=== PATIENT | female | born 1965 | race American Indian/Alaskan Native ===

== ENCOUNTER 2017-07-18 16:58 | Emergency (ER) | payer OTHER ==
[~2017-07-18] VITALS: Ht 160 cm; Wt 61.2 kg
[~2017-07-18 16:58] MED LIST: BENADRYL25 MG PO; EPIPEN 2-P0.3 MG/0.3 IM; IBUPROFEN800 MG PO; NORCO 5-325 TA1 EACH PO; PENICILLIN V P500 MG PO; PEPCID20 MG PO; PREDNISONE20 MG PO
== END 2017-07-18 20:15 | disposition home or self-care (01) ==
LOC: ED 16:58
DX: S13.9XXA Sprain of joints and ligaments of unspecified parts of neck, initial encounter (principal); S00.83XA Contusion of other part of head, initial encounter; F41.9 Anxiety disorder, unspecified; F17.200 Nicotine dependence, unspecified, uncomplicated; Z86.73 Personal history of transient ischemic attack (TIA), and cerebral infarction without residual deficits; Z88.5 Allergy status to narcotic agent; Z79.52 Long term (current) use of systemic steroids; Z79.899 Other long term (current) drug therapy; W22.8XXA Striking against or struck by other objects, initial encounter
CPT/HCPCS: 70486; 72125; 99284

== ENCOUNTER 2018-01-01 11:40 | Emergency (ER) | payer OTHER ==
[~2018-01-01] VITALS: Ht 160 cm; Wt 61.2 kg
--- OUTSIDE RECORDS SUMMARY | ~2018-01-01 | XMS | Clinical Summary ---
Demographics + + + | Address | [address] | | | [place] [address] | + + + | Home Phone | | + + + | Preferred Language | Unknown | + + + | Marital Status | Single | + + + | Sabianism Affiliation | Unknown | + + + | Race | Unknown | + + + | Ethnic Group | Unknown | + + + Author + + + | Author | [facility] | | | and [place] | + + + | Organization | [facility] | | | and [place] | + + + | Address | Unknown | + + + | Phone | Unavailable | + + + Support + + +---------+ + | Name | Relationship | Address | Phone | + + +---------+ + | Lucina Tinsley | ECON | Unknown | | + + +---------+ + Care Team Providers + +------+ + | Care Rug Cutter Helper Name | Role | Phone | + +------+ + | No, Physician | PP | Unavailable | + +------+ + Allergies No Known Allergies Current Medications No known medications Active Problems Not on file Encounters +--------+ + + + + | Date | Type | Specialty | Care Team | Description | +--------+ + + + + | 11/25/ | Emergency | | Martinez Chen, | Localized swelling | | 2018 | | | MD | on left hand | | | | | | (Primary Dx) | +--------+ + + + + from Last 3 Months Social History + +-------+ +--------+------+ | Tobacco [...] on file | | + + + Last Filed Vital Signs + + + + | Vital Sign | Reading | Time Taken | + + + + | Blood Pressure | 168/96 | 11/25/2017 0503 PDT | + + + + | Pulse | 82 | 11/25/2017502 PDT | + + + + | Temperature | 36.3 C (97.3 F) | 11/25/2017502 PDT | + + + + | Respiratory Rate | 18 | 11/25/2017502 PDT | + + + + | Oxygen Saturation | 100% | 11/25/2017502 PDT | + + + + | Inhaled Oxygen | - | - | | Concentration | | | + + + + | Weight | 68 kg (150 lb) | 11/25/2017502 PDT | + + + + | Height | 160 cm (5' 3") | 11/25/2017502 PDT | + + + + | Body Mass Index | 26.57 | 11/25/2017502 PDT | + + + + Plan of Treatment + + + + + | Health Maintenance | Due Date | Last Done | Comments | + + + + + | Vaccine: | | | | | Dtap/Tdap/Td (1 - | 6 | | | | Tdap) | | | | + + + + + | CERVICAL CANCER | | | | | SCREENING (PAP EVERY | 8 | | | | 3 YEARS 21-64 ) | | | | + + + + + | BREAST CANCER | | | | | SCREENING (MAMM Q2 | 7 | | | | YEARS 50-74) | | | | + + + + + | COLON CANCER | | | | | SCREENING | 7 | | | | (COLONOSCOPY EVERY | | | | | 10 YEARS 50-75) | | | | + + + + + | Vaccine: Influenza | | | | | (Season Ended) | 8 | | | + + + + + Results XR Finger Left 2 + Vw (11/25/2017 0526) + + | Narrative | + + | XR FINGER LEFT 2 + VW 11/25/2017 5:26 AM HISTORY: HAND PAIN. COMPARISON: None. | | FINDINGS: Mild first IP and first CMC joint degenerative change. Well-corticated | | ossific fragment along the ulnar styloid process is related to remote degenerative | | change or trauma. No acute fracture or malalignment. 3 mm thin radiodense foreign body | | projects over the radial and dorsal aspect of the head of the first proximal phalanx. | | IMPRESSION - No acute osseous findings. 3 mm thin radiodense foreign body | | projects over the radial and dorsal aspect of the head of the first proximal phalanx. | | Dictated and Signed by: Lee Guadalupe MD Electronically signed: 11/25/2017 12:26 | | PM | + + + + | Procedure Note | + + | Daren, Rad Results In - 11/25/2017 1229 PDT XR FINGER LEFT 2 + VW 11/25/2017 5:26 AM | | | | HISTORY: HAND PAIN. | | | | COMPARISON: None. | | | | FINDINGS: | | Mild first IP and first CMC joint degenerative change. Well-corticated ossific | | fragment along the ulnar styloid process is related to remote degenerative | | change or trauma. No acute fracture or malalignment. 3 mm thin radiodense | | foreign body projects over the radial and dorsal aspect of the head of the first | | proximal phalanx. | | | | IMPRESSION - | | No acute osseous findings. | | | | 3 mm thin radiodense foreign body projects over the radial and dorsal aspect of | | the head of the first proximal phalanx. | | | | Dictated and Signed by: Lee Guadalupe MD | | Electronically signed: 11/25/2017 12:26 PM | + + from Last 3 Months Insurance + +--------+ +--------+ +---------+ | Payer | Benefi | Subscriber | Type | Phone | Address | | | t Plan | ID | | | | | | / | | | | | | | Group | | | | | + +--------+ +--------+ +---------+ | [facility] | IHS | xxxxxxxxx | Indemn | | | | SERVICE | YELLOW | | ity | | | | | [place]WK | | | | | + +--------+ +--------+ +---------+ | [employer] | MODA | xxxxxxxx | Medica | [phone] | | MEDICAID HMO | HEALTH | | id | [id number] | | | | MDCD | | | | | | | HMO [place] | | | | | + +--------+ +--------+ +---------+ + +--------+ +--------+ + + | Guarantor Name | Accoun | Relation to | Date | Phone | Billing Address | | | t Type | Patient | of | | | | | | | | | | + +--------+ +--------+ + + | DIONNE TINSLEY | Person | Self [birth year] Home: | [address] | | | al/Fam | | 1964 | [phone] | [place] | | | kaitlin | | | [phone] | + +--------+ +--------+ + +
--- OUTSIDE RECORDS SUMMARY | ~2018-01-01 | XMS | Encounter Summary ---
Demographics + + + | Address | [address] | | | [place] [address] | + + + | Home Phone | | + + + | Preferred Language | Unknown | + + + | Marital Status | Single | + + + | Baptism Affiliation | Unknown | + + + | Race | Unknown | + + + | Ethnic Group | Unknown | + + + Author + + + | Author | [facility] | | | and [place] | + + + | Organization | [facility] | | | and [place] [...] Team Providers + +------+ + | Care Vascular Radiologist Name | Role | Phone | + [...] + | 11/25/ | Emergency | [facility] | Brown, Martinez Yuan, | Localized swelling | | 2018 | | [facility] | MD [address] | on left hand | | | | CENTER [address] | [facility] [place] | (Primary Dx) | | | | [place], [place] | [place] [address] | | | | | [address] | [phone] | | | | | [phone] | | | +--------+ + + + [...] on file | | + + + as of this encounter Last Filed Vital Signs + + + + | Vital Sign | Reading | Time Taken | + + + + | Blood Pressure | 168/96 | 11/25/2017502 PDT | + + + [...] 11/25/2017502 PDT | + + + + in this encounter Discharge Instructions Martinez Chen MD - 11/25/2017Parveen klein for 1-2 weeks Scheduled ibuprofen for 5 days Follow-up with primary care Return if worsein this encounter Medications at Time of Discharge + + +--------+---------+ + + | Medication | Sig. | Disp. | Refills | Start | End Date | | | | | | Date | | + + +--------+---------+ + + | ibuprofen | Take 1 tablet by | 20 | 0 | 11/26/19 | | | (ADVIL,MOTRIN) 600 | mouth every 6 hours | tablet | | 18 | 8 | | MG tablet | for 5 days. | | | | | + + +--------+---------+ + + as of this encounter Plan of Treatment Not on fileas of this encounter Results XR Finger Left 2 [...] signed: 11/25/2017 12:26 PM | + + in this encounter Visit Diagnoses + + | Diagnosis | + + | Localized swelling on left hand - Primary | + + Administered Medications + +--------+ +--------+------+------+ | Medication Order | MAR | Action | Dose | Rate | Site | | | Action | Date | | | | + +--------+ +--------+------+------+ | ibuprofen (ADVIL,MOTRIN) tablet | Given | | 600 mg | | | | 600 mg 600 mg, Oral, ONCE, Wed | | 8 5:45 | | | | | 11/25/17 at 0545, For 1 dose, Give | | PDT | | | | | with food. | | | | | | + +--------+ +--------+------+------+ +---+---+ | | | +---+---+ in this encounter
--- OUTSIDE RECORDS SUMMARY | ~2018-01-01 | XMS | Clinical Summary ---
Demographics + + + | Address | [address] | | | [place] [address] | + + + | Home Phone | | + + + | Preferred Language | Unknown | + + + | Marital Status | Single | + + + | Pentecostalism Affiliation | Unknown | + + + | Race | Unknown | + + + | Ethnic Group | Unknown | + + + Author + + + | Author | [facility] | | | and [place] | + + + | Organization | [facility] | | | and [...] Team Providers + +------+ + | Care Dentist Private Practice Name | Role | Phone | + [...] | | + +--------+ +--------+ +---------+ | [facility] | IHS | xxxxxxxxx | Indemn | | | | SERVICE | YELLOW | | ity | | | | | HAWK | | | | | + +--------+ +--------+ +---------+ | [employer] | MODA | xxxxxxxx | Medica | [phone] | | | MEDICAID HMO | HEALTH [...] | Self [birth year] | Home: | [address] | | | al/Fam | | 1964 | [phone] | [place] | | | kaitlin | | | [phone] | [phone] | + +--------+ +--------+ + +
--- OUTSIDE RECORDS SUMMARY | ~2018-01-01 | XMS | Encounter Summary ---
Demographics + + + | Address | [address] | | | [place] [address] | + + + | Home Phone | | + + + | Preferred Language | Unknown | + + + | Marital Status | Single | + + + | Roman Catholic Affiliation | Unknown | + + + | Race | Unknown | + + + | Ethnic Group | Unknown | + + + Author + + + | Author | [facility] | | | and [place] | + + + | Organization | [facility] | | | and [...] Team Providers + +------+ + | Care Boiler Repairman Name | Role | Phone | + [...] | | | | CENTER [address] | [facility] [place] | (Primary Dx) | | | | [place], [place] | [place] [address] | | | | | [address] | [phone] | | | | | [phone] | | | +--------+ + + + [...]
--- NOTE | 2018-01-01 14:16 | NUR ---
I WAS REQUESTED BY ED STAFF TO CARE FOR FAMILY OF PT. A NUMBER OF HER FAMILY MEMBERS WERE PRESENT, I HAD THEM MOVE INTO QUIET AND GAVE THEM THE LATEST INFO RE. PT. SHE HAS A BRAIN BLEED, AND IS ENTEBATED FOR HER PROTECTION. DR CLIFFORD INFORMED THEM OF HER CONDITION AND STATED THAT WE WILL BE TRANSPORTING HER SOON. KEPT FAMILY INFORMED THAT PT WILL BE GOING TO [facility] IN [place]. SOME FAMILY CHOSE TO WAIT FOR LIFEFLIGHT, TOOK SISTER AND CHILDREN IN TO SEE PT. COMFORTED THEM AND GAVE INSTRUCTIONS TO [facility]. I EXTENDED A BLESSING-WILL FOLLOW NEEDED
--- NOTE | 2018-01-01 19:26 | EKG ---
[facility] [address] [place] [address] Signed Poor data quality, interpretation may be adversely affected Normal sinus rhythm Prolonged QT Abnormal ECG No previous ECGs available Confirmed by GINA ORELLANA MD ([id number]) on 01/01/2018 7:26:31 PM Electronically Signed By: GINA ORELLANA MD 01/01/18 1926 PATIENT NAME: JILL FAIR Electrocardiogram DATE OF : 69 PHYSICIAN: GINA ORELLANA MD REPORT #: [id number] REPORT IS CONFIDENTIAL AND NOT TO BE RELEASED WITHOUT AUTHORIZATION
== END 2018-01-01 13:51 | disposition short-term general hospital (02) ==
LOC: ED 11:40
PROC: 0T9B70Z Drainage of Bladder with Drainage Device, Via Natural or Artificial Opening (ICD-10-PCS; principal; 2018-01-01)
DX: I60.9 Nontraumatic subarachnoid hemorrhage, unspecified (principal); I62.01 Nontraumatic acute subdural hemorrhage; F17.200 Nicotine dependence, unspecified, uncomplicated; Z88.5 Allergy status to narcotic agent; Z86.73 Personal history of transient ischemic attack (TIA), and cerebral infarction without residual deficits
CPT/HCPCS: 31500; 31720; 36600; 51702; 70450; 71045; 80053; 81001; 82803; 83880; 85025; 85610; 93005; 93010; 94002; 96365; 96375; 99291; G0480; J1100; J1953; J2405; J2704; J7030; J7050

== ENCOUNTER 2018-08-27 23:19 | Emergency (ER) | payer OTHER ==
[~2018-08-27] VITALS: Ht 160 cm; Wt 68.0 kg
[~2018-08-27 23:19] MED LIST changes: +ZITHROMAX250 MG PO
--- OUTSIDE RECORDS SUMMARY | 2018-08-27 23:28 | XMS ---
PreManage Notification: JILL FAIR Security Supply Analyst Events No recent Security Events currently on file CRITERIA MET - [facility] - 2 Visits in 30 Days CARE PROVIDERS DELMAR JOSEPH Primary Care Current PHONE: [phone] Alisha has no Care Guidelines for this patient. Chandan VISIT COUNT (12 MO.) 1 Ele [facility] Joss [place] [address] TOTAL 6 NOTE: Visits indicate total known visits. ED/UCC VISIT TRACKING (12 MO.) 08/27/2018 23:23 [facility] [place] TYPE: Emergency COMPLAINT: - L EAR INJURY 08/13/2018 18:12 [facility] [place] TYPE: Emergency COMPLAINT: - HEADACHE DIAGNOSES: - Personal history of transient ischemic attack (TIA), and cerebral infarction without residual deficits - Nicotine dependence, unspecified, uncomplicated - Anxiety disorder, unspecified - Headache 06/27/2018 16:27 [facility] [place] TYPE: Emergency COMPLAINT: - COUGH DIAGNOSES: - Acute upper respiratory infection, unspecified - Anxiety disorder, unspecified - Personal history of transient ischemic attack (TIA), and cerebral infarction without residual deficits - Cough - Nicotine dependence, unspecified, uncomplicated 03/20/2018 09:02 [facility] Shamir [place] TYPE: Emergency COMPLAINT: - Encounter for issue of repeat prescription DIAGNOSES: 1. Headache 1. Encounter for issue of repeat prescription 2. Encounter for issue of repeat prescription 01/01/2018 11:40 [facility] Tee TYPE: Emergency COMPLAINT: - POSS STROKE DIAGNOSES: - Allergy status to narcotic agent status - Personal history of transient ischemic attack (TIA), and cerebral infarction without residual deficits - Facial weakness - Nontraumatic subarachnoid hemorrhage, unspecified - Nicotine dependence, unspecified, uncomplicated - Nontraumatic acute subdural hemorrhage 11/25/2017 04:58 [facility] Marianne KAYE TYPE: Emergency DIAGNOSES: - Hand Pain - Localized swelling, mass and lump, left upper limb - lt hand pain INPATIENT VISIT TRACKING (12 MO.) 01/01/2018 15:[address] [facility] [place] TYPE: Neuro Surgery DIAGNOSES: - Nontraumatic intracranial hemorrhage, unspecified - Nontraumatic subarachnoid hemorrhage, unspecified - Other stimulant abuse, uncomplicated - Nontraumatic intracerebral hemorrhage, multiple localized - Unspecified convulsions - Alcohol dependence, uncomplicated - Trichomoniasis, unspecified - Phlebitis and thrombophlebitis of other sites - Hypertensive emergency - Acute cystitis without hematuria - Contact with and (suspected) exposure to infections with a predominantly sexual mode of transmission - Nontraumatic intracerebral hemorrhage, intraventricular - Compression of brain - Hydrocephalus, unspecified - Unspecified viral hepatitis C without hepatic coma [email or web address]
== END 2018-08-28 00:53 | disposition home or self-care (01) ==
LOC: ED 23:19
DX: S01.312A Laceration without foreign body of left ear, initial encounter (principal); Z86.73 Personal history of transient ischemic attack (TIA), and cerebral infarction without residual deficits; F41.9 Anxiety disorder, unspecified; F17.200 Nicotine dependence, unspecified, uncomplicated; W45.8XXA Other foreign body or object entering through skin, initial encounter
CPT/HCPCS: 99282

== ENCOUNTER 2019-09-29 09:21 | Emergency (ER) | payer OTHER ==
[~2019-09-29] VITALS: Ht 160 cm; Wt 68.0 kg
[2019-09-29] MEDS ORDERED: ONDANSETRON ODT8 MG PO (11:10)
== END 2019-09-29 11:18 | disposition home or self-care (01) ==
LOC: ED 09:21
DX: R51 Headache (principal); F41.9 Anxiety disorder, unspecified; F17.200 Nicotine dependence, unspecified, uncomplicated
CPT/HCPCS: 70450; 80053; 85025; 96361; 96374; 99284-25; 99406; J2405; J7040

== ENCOUNTER 2020-05-30 17:17 | Emergency (ER) | payer OTHER ==
[~2020-05-30] VITALS: Ht 160 cm; Wt 81.2 kg
--- OUTSIDE RECORDS SUMMARY | ~2020-05-30 | XMS | Encounter Summary ---
Demographics + + + | Address | [address] | | | [place] [address] | + + + | Home Phone | | + + + | Preferred Language | Unknown | + + + | Marital Status | Single | + + + | Latter Day Affiliation | Unknown | + + + | Race | Unknown | + + + | Ethnic Group | Unknown | + + + Author + + + | Author | [facility] | | | and [place] | + + + | Organization | [facility] | | | and [place] | + + + | Address | Unknown | + + + | Phone | Unavailable | + + + Care Team Providers + +------+ + | Care Cluster Bore Operator Name | Role | Phone | + +------+ + | No Physician | PCP | Unavailable | + +------+ + Encounter Details +--------+ + + + + | Date | Type | Department | Care Team | Description | +--------+ + + + + | 06/25/ | Hospital | [facility] | Conversion | Pain | | 2018 | Encounter | CONVERSION [address] | Transaction, | | | | | [address] | Provider Unknown | | | | | [place] | [phone] | | | | | [address] | | | | | | [phone] | | | +--------+ + + + + Social History + +-------+ +--------+------+ | Tobacco Use | Types | Packs/Day | Years | Date | | | | | Used | | + +-------+ +--------+------+ | Never Assessed | | | | | + +-------+ +--------+------+ + + + | Sex Assigned at | Date Recorded | | | | + + + | Not on file | | + + + documented as of this encounter Plan of Treatment Not on filedocumented as of this encounter Procedures + +--------+ + + + | Procedure Name | Priori | Date/Time | Associated Diagnosis | Comments | | | ty | | | | + +--------+ + + + | CT MAXILLOFACIAL WO | Routin | 07/18/2017 | | Results for this | | CONTRAST | e | 1:26 AM | | procedure are in the | | | | PST | | results section. | + +--------+ + + + documented in this encounter Results CT Maxillofacial wo Contrast (07/18/2017 1:26 AM PST) + + | Specimen | + + | | + + + + + | Narrative | Performed At | + + + | This is a non-reportable procedure without a radiologist report and | | | is used for image storage only | | + + + + + | Procedure Note | + + | Dutch Mercedes - 04/13/2019 4:31 PM PDT This is a non-reportable procedure | | without a radiologist report and isused for image storage only | + + documented in this encounter Visit Diagnoses + + | Diagnosis | + + | Pain Generalized pain | + + documented in this encounter"
--- OUTSIDE RECORDS SUMMARY | ~2020-05-30 | XMS | Encounter Summary ---
Demographics + + + | Address | [address] | | | [place] [address] | + + + | Home Phone | | + + + | Preferred Language | Unknown | + + + | Marital Status | Single | + + + | Orthodox Affiliation | Unknown | + + + | Race | Unknown | + + + | Ethnic Group | Unknown | + + + Author + + + | Author | [facility] | | | and [place] | + + + | Organization | [facility] | | | and [place] | + + + | Address | Unknown | + + + | Phone | Unavailable | + + + Care Team Providers + +------+ + | Care Morning Caregiver Name | Role | Phone | + +------+ + | No, Physician | PCP | Unavailable | + +------+ + Reason for Visit + + + | Reason | Comments | + + + | Hand Pain | left | + + + Encounter Details +--------+ + + + + | Date | Type | Department | Care Team | Description | +--------+ + + + + | 11/25/ | Emergency | [facility] | Martinez Chen, | Localized swelling | | 2017 | | [facility] | MD [address] | on left hand | | | | CENTER [address] | [facility] | (Primary Dx) | | | | [place] | [place] [address] | | | | | [address] | [phone] | | | | | [phone] | | | +--------+ + + + [...] + + documented as of this encounter Last Filed Vital Signs + + + + + | Vital Sign | Reading | Time Taken | Comments | + + + + + | Blood Pressure | 168/96 | 11/25/2017 5:03 AM | | | | | PDT | | + + + + + | Pulse | 82 | 11/25/2017 5:03 AM | | | | | PDT | | + + + + + | Temperature | 36.3 C (97.3 F) | 11/25/2017 5:03 AM | | | | | PDT | | + + + + + | Respiratory Rate | 18 | 11/25/2017 5:03 AM | | | | | PDT | | + + + + + | Oxygen Saturation | 100% | 11/25/2017 5:03 AM | | | | | PDT | | + + + + + | Inhaled Oxygen | - | - | | | Concentration | | | | + + + + + | Weight | 68 kg (150 lb) | 11/25/2017 5:03 AM | | | | | PDT | | + + + + + | Height | 160 cm (5' 3") | 11/25/2017 5:03 AM | | | | | PDT | | + + + + + | Body Mass Index | 26.57 | 11/25/2017 5:03 AM | | | | | PDT | | + + + + + documented in this encounter Discharge Instructions Instructions Martinez Chen MD - 11/25/2017Parveen klein for 1-2 weeks Scheduled ibuprofen for 5 days Follow-up with primary care Return if worse documented in this encounter Medications at Time of Discharge + + + +---------+ + + | Medication | Sig | Dispensed | Refills | Start | End Date | | | | | | Date | | + + + +---------+ + + | ibuprofen | Take 1 tablet by | 20 | 0 | 11/26/19 | | | (ADVIL,MOTRIN) 600 | mouth every 6 hours | tablet | | 18 | 8 | | MG tablet | for 5 days. | | | | | + + + +---------+ + + documented as of this encounter ED Notes Breanne Pereyra CNA - 11/25/2017 5:39 AM PDTAce wrap applied to left hand . Patient vicky rated well Annetta Rankin MD - 11/25/2017 5:19 AM PDTFormatting of this note might be different from the leslee jones. [facility] Dionne Tinsley Emergency Department Encounter Note [address] [place] [id number] PCP:No Physician on file [phone] CHIEF COMPLAINT Chief Complaint Patient presents with Hand Pain left HPI Dionne Tinsley is a 52 y.o. female who presents to the emergency department with left hudson d pain and swelling. This patient has pain and swelling in her left hand thenar eminence. She states the symptoms just started today. She was recently doing some gardening. She minaya s not think she injured anything. She does not think she was bit by anything. She denies p rior similar episodes. She came to the ER for evaluation. She is right-handed. No fever. PAST MEDICAL HISTORY No past medical history on file. SURGICAL HISTORY No past surgical history on file. CURRENT MEDICATIONS Discharge Medication List as of 11/25/2017 5:43 ALLERGIES No Known Allergies FAMILY HISTORY No family history on file. SOCIAL HISTORY Social History Social History Marital status: Single Spouse name: N/A Number of children: N/A Years of education: N/A Social History Main Topics Smoking status: Not on file Smokeless tobacco: Not on file Alcohol use Not on file Drug use: Unknown Sexual activity: Not on file Other Topics Concern Not on file Social History Narrative No narrative on file REVIEW OF SYSTEMS All systems reviewed and found negative except what is in the HPI PHYSICAL EXAM VITAL SIGNS: BP (!) 168/96 | Pulse 82 | Temp 36.3 C (97.3 F) (Oral) | Resp 18 | Ht 1.6 m (5' 3") | Wt 68 kg (150 lb) | SpO2 100% | BMI 26.57 kg/m Constitutional: Well developed, Well nourished, No acute distress, Non-toxic appearance. HENT: Normocephalic, Atraumatic, Bilateral external ears normal, Mucous membranes are mois t, Nasal mucosa is normal. Eyes: PERRL, Conjunctiva normal, No discharge. Palpebral conjunctiva are pink. Neck: Normal range of motion, No tenderness, Supple, No stridor. Respiratory: No respiratory distress, No wheezing Cardiovascular: Normal heart rate, Normal rhythm Extremities: Warm and well perfused, no edema, no joint swelling or deformity. Good ROM. Mild swelling of the thenar eminence of her left hand. Skin: Warm, Dry, No erythema, No induration, No rash. No skin abnormalities of the thenar eminence of her left hand. Neurologic: Alert & oriented x 3, No focal motor or sensory deficits. Speech is clear. G ait is normal. RADIOLOGY X-ray of the left hand shows no acute pathology ED COURSE & MEDICAL DECISION MAKING Pertinent Labs & Imaging studies reviewed. (See chart for details) The patient was seen and examined shortly after arriving in the emergency department. Hist ory and physical were obtained, vital signs were noted. The overlying skin is not red or wa rm. No skin lesions are noted. There is some generalized swelling of the thenar eminence o n the left hand compared to the right. X-ray is unremarkable for acute pathology. I will t reat her with scheduled ibuprofen and an Parveen wrap. Follow-up with primary care. FINAL IMPRESSION 1. Localized swelling on left hand PLAN Follow-up Information [facility]. Schedule an appointment as soon as possible for a vis it in 1 week. Contact information: [address] [place] [address] Discharge Medication List as of 11/25/2017 5:43 START taking these medications Details ibuprofen (ADVIL,MOTRIN) 600 MG tablet Take 1 tablet by mouth every 6 hours for 5 days.Disp -20 tablet, R-0, Print Martinez Chen MD 11/25/17 0609 Boo Brown R N - 11/25/2017 5:02 AM PDTPt presents to the er co left hand pain and swelling tonight. Pt sts working in the yard yesterday, and tonight she noticed pain and swelling to her hand. Pt denies injury. do cumented in this encounter Plan of Treatment Not on filedocumented as of this encounter Procedures + +--------+ + + + | Procedure Name | Priori | Date/Time | Associated Diagnosis | Comments | | | ty | | | | + +--------+ + + + | XR FINGER LEFT 2 + | STAT | 11/25/2017 | | Results for this | | VW | | 5:26 AM | | procedure are in the | | | | PDT | | results section. | + +--------+ + + + documented in this encounter Results XR Finger Left 2 + Vw (11/25/2017 5:26 AM PDT) + + | Specimen | + + | | + + + + + | Narrative | Performed At | + + + | XR FINGER LEFT 2 + VW 11/25/2017 5:26 AM HISTORY: HAND PAIN. | [facility] | | COMPARISON: None. FINDINGS: Mild first IP and first CMC joint | | | degenerative change. Well-corticated ossific fragment along the ulnar | | | styloid process is related to remote degenerative change or trauma. | | | No acute fracture or malalignment. 3 mm thin radiodense foreign body | | | projects over the radial and dorsal aspect of the head of the first | | | proximal phalanx. IMPRESSION - No acute osseous findings. 3 | | | mm thin radiodense foreign body projects over the radial and dorsal | | | aspect of the head of the first proximal phalanx. Dictated and | | | Signed by: Lee Guadalupe MD Electronically signed: 11/25/2017 | | | 12:26 PM | | + + + + + | Procedure Note | + + | Daren, Rad Results In - 11/25/2017 12:29 PM PDT XR FINGER LEFT 2 + VW [...] signed: 11/25/2017 12:26 PM | + + + +---------+ + + | Performing | Address | City/State/Zipcode | Phone Number | | Organization | | | | + +---------+ + + | [facility] | | | | + +---------+ + + documented in this encounter Visit Diagnoses + + | Diagnosis | + + | Localized swelling on left hand - Primary | + + documented in this encounter Administered Medications + +--------+ +--------+------+------+ | Medication Order | MAR | Action | Dose | Rate | Site | | | Action | Date | | | | + +--------+ +--------+------+------+ | ibuprofen (ADVIL,MOTRIN) tablet | Given | 11/26/19 | 600 mg | | | | 600 mg 600 mg, Oral, ONCE, Thu | | 18 5:45 | | | | | 11/25/17 at 0545, For 1 dose, Give | | AM PDT | | | | | with food., | | | | | | + +--------+ +--------+------+------+ +---+---+ | | | +---+---+ documented in this encounter
--- OUTSIDE RECORDS SUMMARY | ~2020-05-30 | XMS | Encounter Summary ---
Demographics + + + | Address | [address] | | | [place] [address] | + + + | Home Phone | | + + + | Preferred Language | Unknown | + + + | Marital Status | Single | + + + | Catholic Affiliation | Unknown | + + + | Race | Unknown | + + + | Ethnic Group | Unknown | + + + Author + + + | Author | [facility] | | | and [place] | + + + | Organization | [facility] | | | and [place] | + + + | Address | Unknown | + + + | Phone | Unavailable | + + + Care Team Providers + +------+ + | Care Data Management Specialist Name | Role | Phone | + +------+ + | No Physician | PCP | Unavailable | + +------+ + Encounter Details +--------+ + + + + | Date | Type | Department | Care Team | Description | +--------+ + + + + | 06/25/ | Hospital | [facility] | Conversion | Pain | | 2018 | Encounter | [address]VERSION [address] | Transaction, | | | | | [address] | Provider Unknown | | | | | [place] | [phone] | | | | | [address] | | | | | | [phone] | | | +--------+ + + + [...] + +--------+ + + + | CT HEAD WO CONTRAST | Routin | 01/16/2018 | | Results for this | | | e | 1:58 AM | | procedure are in the | | | | PDT | | results section. | + +--------+ + + + documented in this encounter Results CT Head wo Contrast (01/16/2018 1:58 AM PDT) + + | Specimen | + + | | + + + + + | Narrative | Performed At | + + + | This is a non-reportable procedure without a radiologist report and | | | is used for image storage only | | + + + + + | Procedure Note | + + | Dutch Mercedes Cedric - 04/13/2019 4:31 PM PDT This is a non-reportable procedure | | without a radiologist report and isused for image storage only | + + documented in this encounter Visit Diagnoses + + | Diagnosis | + + | Pain Generalized pain | + + documented in this encounter"
--- OUTSIDE RECORDS SUMMARY | ~2020-05-30 | XMS | Encounter Summary ---
Demographics + + + | Address | [address] | | | [place] [address] | + + + | Home Phone | | + + + | Preferred Language | Unknown | + + + | Marital Status | Single | + + + | Gnosticism Affiliation | Unknown | + + + | Race | Unknown | + + + | Ethnic Group | Unknown | + + + Author + + + | Author | [facility] | | | and [place] | + + + | Organization | [facility] | | | and [place] | + + + | Address | Unknown | + + + | Phone | Unavailable | + + + Care Team Providers + +------+ + | Care Rn Clinical Resource Name | Role | Phone | + +------+ + | No Physician | PCP | Unavailable | + +------+ + Encounter Details +--------+ + + + + | Date | Type | Department | Care Team | Description | +--------+ + + + + | 06/25/ | Hospital | [facility] | Conversion | Pain | | 2018 | Encounter | [address]VERSION [address] | Transaction, | | | | | [address] | Provider Unknown | | | | | [place] | [phone] | | | | | [address] | | | | | | [phone] | | | +--------+ + + + [...] Not on filedocumented as of this encounter Visit Diagnoses + + | Diagnosis | + + | Pain Generalized pain | + + documented in this encounter"
--- OUTSIDE RECORDS SUMMARY | ~2020-05-30 | XMS | Encounter Summary ---
Demographics + + + | Address | [address] | | | [place] [address] | + + + | Home Phone | | + + + | Preferred Language | Unknown | + + + | Marital Status | Single | + + + | Scientology Affiliation | Unknown | + + + | Race | Unknown | + + + | Ethnic Group | Unknown | + + + Author + + + | Author | [facility] | | | and [place] | + + + | Organization | [facility] | | | and [place] | + + + | Address | Unknown | + + + | Phone | Unavailable | + + + Care Team Providers + +------+ + | Care Exercise Rider Name | Role | Phone | + +------+ + | No Physician | PCP | Unavailable | + +------+ + Encounter Details +--------+ + + + + | Date | Type | Department | Care Team | Description | +--------+ + + + + | 06/25/ | Hospital | [facility] | Conversion | Pain | | 2018 | Encounter | [address]VERSION [address] | Transaction, | | | | | [address] | Provider Unknown | | | | | [place] | [phone] | | | | | [address] | | | | | | [phone] | | | +--------+ + + + [...] CT HEAD WO CONTRAST | Routin | 01/17/2018 | | Results for this | | | e | 1:57 AM | | procedure are in the | | | | PDT | | results section. | + +--------+ + + + documented in this encounter Results CT Head wo Contrast (01/17/2018 1:57 AM PDT) + + | Specimen | [...]
--- OUTSIDE RECORDS SUMMARY | ~2020-05-30 | XMS | Encounter Summary ---
Demographics + + + | Address | [address] | | | [place] [address] | + + + | Home Phone | | + + + | Preferred Language | Unknown | + + + | Marital Status | Single | + + + | Scientologist Affiliation | Unknown | + + + | Race | Unknown | + + + | Ethnic Group | Unknown | + + + Author + + + | Author | [facility] | | | and [place] | + + + | Organization | [facility] | | | and [place] | + + + | Address | Unknown | + + + | Phone | Unavailable | + + + Care Team Providers + +------+ + | Care Assembly Associate Name | Role | Phone | + +------+ + PCP | Unavailable | + +------+ + Encounter Details +--------+ + + + + | Date | Type | Department | Care Team | Description | +--------+ + + + + | 06/23/ | Hospital | [facility] | | | | 2002 | Encounter | MED CTR GENERIC OP | | | | | | CONV DEPT [address] | | | | | | [place], | | | | | | [place] [address] | | | | | | [phone] | | | +--------+ + + + [...] filedocumented as of this encounter Visit Diagnoses Not on filedocumented in this encounter"
--- OUTSIDE RECORDS SUMMARY | ~2020-05-30 | XMS | Encounter Summary ---
Demographics + + + | Address | [address] | | | [place] [address] | + + + | Home Phone | | + + + | Preferred Language | Unknown | + + + | Marital Status | Single | + + + | Anabaptism Affiliation | Unknown | + + + | Race | Unknown | + + + | Ethnic Group | Unknown | + + + Author + + + | Author | [facility] | | | and [place] | + + + | Organization | [facility] | | | and [place] | + + + | Address | Unknown | + + + | Phone | Unavailable | + + + Care Team Providers + +------+ + | Care Rn Charge Name | Role | Phone | + +------+ + PCP | Unavailable | + +------+ + Encounter Details +--------+ + + + + | Date | Type | Department | Care Team | Description | +--------+ + + + + | 10/23/ | Hospital | [facility] | | | | 2003 - | Encounter | [facility] | | | | | | [facility] [address] | | | | 10/25/ | | [place], | | | | 2003 | | [place] [address] | | | | | | [phone] | | | +--------+ + + + [...]
--- OUTSIDE RECORDS SUMMARY | ~2020-05-30 | XMS | Encounter Summary ---
Demographics + + + | Address | [address] | | | [place] [address] | + + + | Home Phone | | + + + | Preferred Language | Unknown | + + + | Marital Status | Single | + + + | Zoroastrian Affiliation | Unknown | + + + | Race | Unknown | + + + | Ethnic Group | Unknown | + + + Author + + + | Author | [facility] | | | and [place] | + + + | Organization | [facility] | | | and [place] | + + + | Address | Unknown | + + + | Phone | Unavailable | + + + Care Team Providers + +------+ + | Care Founder Name | Role | Phone | + +------+ + | No Physician | PCP | Unavailable | + +------+ + Encounter Details +--------+ + + + + | Date | Type | Department | Care Team | Description | +--------+ + + + + | 06/25/ | Hospital | [facility] IP | Conversion | Pain | | 2018 | Encounter | [address]VERSION [address] | Transaction, | | | | | [address] | Provider Unknown | | | | | [place] | [phone] | | | | | [address] | | | | | | [phone] | | | +--------+ + + + [...] CT HEAD WO CONTRAST | Routin | 01/15/2018 | | Results for this | | | e | 1:59 AM | | procedure are in the | | | | PDT | | results section. | + +--------+ + + + documented in this encounter Results CT Head wo Contrast (01/15/2018 1:59 AM PDT) + + | Specimen | [...]
--- OUTSIDE RECORDS SUMMARY | ~2020-05-30 | XMS | Clinical Summary ---
Demographics + + + | Address | [address] | | | [place] [address] | + + + | Home Phone | | + + + | Preferred Language | Unknown | + + + | Marital Status | Single | + + + | Mu-Ism Affiliation | Unknown | + + + | Race | Unknown | + + + | Ethnic Group | Unknown | + + + Author + + + | Author | [facility] | | | and [place] | + + + | Organization | [facility] | | | and [place] | + + + | Address | Unknown | + + + | Phone | Unavailable | + + + Care Team Providers + +------+ + | Care Group Tester Name | Role | Phone | + +------+ + | Becca Fry PA-C PCP | | + +------+ + Allergies No Known Allergies Medications No known medications Active Problems Not on file Social History + +-------+ +--------+------+ | Tobacco [...] | | + + + + + Plan of Treatment + + +-------+ + | Health Maintenance | Due Date | Last | Comments | | | | Done | | + + +-------+ + | Hepatitis C | | | | | Screening | 7 | | | + + +-------+ + | Vaccine: | | | | | Dtap/Tdap/Td (1 - | 6 | | | | Tdap) | | | | + + +-------+ + | Cervical Cancer | | | | | Screening (Pap) | 7 | | | + + +-------+ + | Breast Cancer | | | | | Screening | 2 | | | + + +-------+ + | Colorectal Cancer | | | | | Screening | 7 | | | | (Colonoscopy) | | | | + + +-------+ + | Vaccine: Zoster (1 | | | | | of 2) | 7 | | | + + +-------+ + | Vaccine: Influenza | | | | | (#1) | 0 | | | + + +-------+ + Results Not on filefrom Last 3 Months Insurance + +--------+ +--------+ +---------+--------+ | Payer | Benefi | Subscriber | Effect | Phone | Address | Type | | | t Plan | ID | foreign | | | | | | / | | Dates | | | | | | Group | | | | | | + +--------+ +--------+ +---------+--------+ | [employer] | [employer] | [id number] | Effect | [phone] | | Medica | | MEDICAID HMO | HEALTH | | foreign | 1 | | id | | | MDCD | | for | | | | | | HMO [place] | | all | | | | | | | | dates | | | | + +--------+ +--------+ +---------+--------+ | HEALTH | IHS | [id number] | | | | Indemn | | SERVICE | YELLOW | | 018-Pr | | | ity | | | HAWK | | esent | | | | + +--------+ +--------+ +---------+--------+ | [employer] | [employer] | [id number] | | [phone] | | Medica | | MEDICAID HMO | HEALTH | | 018-Pr | 1 | | id | | | MDCD | | esent | | | | | | HMO [place] | | | | | | + +--------+ +--------+ +---------+--------+ + +--------+ +--------+ + + | Guarantor Name | Accoun | Relation to | Date | Phone | Billing Address | | | t Type | Patient | of | | | | | | | | | | + +--------+ +--------+ + + | Dionne Tinsley | Person | Self [birth year] | [address] | | | al/Fam | | 1964 | [address] | [place], [place] | | | [place] | | | [address] (Home) | [address] | + +--------+ +--------+ + + | Dionne Tinsley | Person | Self [birth year] | [address] | | | al/Fam | | 1964 | | [place], [place] | | | [place] | | | [address] (Home) | [address] | + +--------+ +--------+ + + Advance Directives + + + + + | Type | Date Recorded | Patient | Explanation | | | | Senior Physical Therapist | | + + + + + | Power of | | | | | Incident Analyst | | | | + + + + + | Advance | | | | | Directive | | | | + + + + +
--- OUTSIDE RECORDS SUMMARY | ~2020-05-30 | XMS | Encounter Summary ---
Demographics + + + | Address | [address] | | | [place] [address] | + + + | Home Phone | | + + + | Preferred Language | Unknown | + + + | Marital Status | Single | + + + | Yarsanism Affiliation | Unknown | + + + | Race | Unknown | + + + | Ethnic Group | Unknown | + + + Author + + + | Author | [facility] | | | and [place] | + + + | Organization | [facility] | | | and [place] | + + + | Address | Unknown | + + + | Phone | Unavailable | + + + Care Team Providers + +------+ + | Care Bottoming Room Supervisor Name | Role | Phone | + +------+ + PCP | Unavailable | + +------+ + Encounter Details +--------+ + + + + | Date | Type | Department | Care Team | Description | +--------+ + + + + | 10/12/ | Hospital | [facility] | | | | 2004 | Encounter | [facility] | | | | | | [facility] [address] | | | | | | [place], | | | | | | [place] [address] | | | | | | [phone] | | | +--------+ + + + [...]
--- OUTSIDE RECORDS SUMMARY | ~2020-05-30 | XMS | Encounter Summary ---
Demographics + + + | Address | [address] | | | [place] [address] | + + + | Home Phone | | + + + | Preferred Language | Unknown | + + + | Marital Status | Single | + + + | Yarsani Affiliation | Unknown | + + + | Race | Unknown | + + + | Ethnic Group | Unknown | + + + Author + + + | Author | [facility] | | | and [place] | + + + | Organization | [facility] | | | and [place] | + + + | Address | Unknown | + + + | Phone | Unavailable | + + + Care Team Providers + +------+ + | Care Glove Turner And Former Name | Role | Phone | + +------+ + | No Physician | PCP | Unavailable | + +------+ + Encounter Details +--------+ + + + + | Date | Type | Department | Care Team | Description | +--------+ + + + + | 01/03/ | Hospital | [facility] GENER[facility] IP | Conversion | Pain | | 2018 | Encounter | CONVERSION [address] | Transaction, | | | | | [address] | Provider Unknown | | | | | [place] | [phone] | | | | | [address] | | | | | | [phone] | | | +--------+ + + + [...] CT HEAD WO CONTRAST | Routin | 01/01/2018 | | Results for this | | | e | 3:06 AM | | procedure are in the | | | | PDT | | results section. | + +--------+ + + + documented in this encounter Results CT Head wo Contrast (01/01/2018 3:06 AM PDT) + + | Specimen | [...]
[~2020-05-30 17:17] MED LIST changes: +ONDANSETRON ODT8 MG PO; +TYLENOL325 M1 PO
[2020-05-30] MEDS ORDERED: ADVIL200 M1 PO (18:24)
== END 2020-05-30 20:11 | disposition home or self-care (01) ==
LOC: ED 17:17
DX: M25.562 Pain in left knee (principal); Z86.73 Personal history of transient ischemic attack (TIA), and cerebral infarction without residual deficits; F17.200 Nicotine dependence, unspecified, uncomplicated; Z88.5 Allergy status to narcotic agent; Z88.8 Allergy status to other drugs, medicaments and biological substances
CPT/HCPCS: 93971; 99283-25

== ENCOUNTER 2022-11-14 06:05 | Day surgery (SDC) | payer OTHER ==
[~2022-11-14] VITALS: Ht 160 cm; Wt 85.9 kg
[~2022-11-14 06:05] MED LIST changes: +ADVIL200 M1 PO; +EXCEDRIN MIGRA1 EACH PO
[2022-11-14] MEDS ORDERED: TRAZODONE HCL150 MG PO (06:35)
[2022-11-14] MEDS ORDERED: DICLOFENAC EPO1 EACH TD (06:40)
[2022-11-14] MEDS ORDERED: CLARITIN10 M2 PO (06:40)
[2022-11-14] MEDS ORDERED: OMEPRAZOLE20 MG PO (06:40)
--- NOTE | 2022-11-14 08:03 | NUR ---
11/14/22 0803 Tina,Brenda 0751 PT ARRIVED TO PACU ON 4L VIA NC, PT ASLEEP AND RESP EVEN AND UNLABORED.
--- NOTE | 2022-11-14 08:57 | OR ---
[facility] [address], [place] [address] Signed DATE OF OPERATION: 11/14/2022 SURGEON: Dirk Araujo MD PREOPERATIVE DIAGNOSIS: Gastroesophageal reflux disease. POSTOPERATIVE DIAGNOSES: 1. Small hiatal hernia (37-35 cm). 2. Proximal gastritis. 3. GE junction at 35 cm. PROCEDURE: Esophagogastroduodenoscopy with CLOtest and biopsies of the antrum and body. ESTIMATED BLOOD LOSS: None. INDICATIONS: Dionne is a 57-year-old female, asked to see me for upper endoscopy. I helped her with a screening colonoscopy in 2020 at age 54. More recently, she has had trouble with acid reflux. She is using Prilosec as well as Pepto-Bismol. She is having breakthrough symptoms. Her primary care provider asked that she come for upper endoscopy. In the office, I gave her a pamphlet on upper endoscopy. We have compared it to her previous colonoscopy. She understands there is risk of including, but not limited to gas bloating, crampy abdominal pain, bleeding, perforation requiring surgery, and missed diagnosis. We also reviewed the need for the monitored anesthesia care as we did for her back in 2019. She had expressed understanding and wished to proceed. DESCRIPTION OF PROCEDURE: Dionne was taken into our endoscopy suite and placed in the supine semi-recumbent position. She was given monitored anesthesia care, propofol infusion per our nurse chair and couch maker. The posterior oropharynx was anesthetized with Hurricaine spray. A bite block was utilized for the case. The adult gastroscope had been introduced and advanced out into the third portion of the duodenum under direct visualization of the camera without difficulty. The duodenum and pyloric channel were unremarkable. The distal half of her stomach was unremarkable. We took a biopsy of the antrum for CLOtest as well as pathologic review. Upon retroflexion of scope, we could see patchy gastritis throughout the proximal half of her stomach. She does have a small hiatal hernia. We measured the hiatal hernia from about 37 back to 35 cm. There is no gastric or Electronically Signed By: DIRK ARAUJO MD 11/14/22 0857 PATIENT NAME: DIONNE FAIR OPERATIVE REPORT DATE OF : 69 REPORT #: [id number] PHYSICIAN: DIRK ARAUJO MD PCP: [facility] REPORT IS CONFIDENTIAL AND NOT TO BE RELEASED WITHOUT AUTHORIZATION [facility] [address], [place] [address] Signed esophageal varices. There is no stricture at the GE junction. She has minimal disruption around the Z-line. There was no Lenz mucosa. There was no distal esophagitis. The middle and upper esophagus were unremarkable. After this, the gas was suctioned out, the gastroscope removed. Dionne tolerated the procedure quite well. RECOMMENDATIONS: I will see Dionne back in my office in 7 to 14 days to review her results. Dirk Araujo MD ALB/XINL /[id number] cc: Patient Chart Dirk Araujo MD [facility] Copies: DIRK ARAUJO MD [facility] ~ Electronically Signed By: DIRK ARAUJO MD 11/14/22 0857 PATIENT NAME: DIONNE FAIR OPERATIVE REPORT DATE OF : 69 REPORT #: [id number] PHYSICIAN: DIRK ARAUJO MD PCP: [facility] REPORT IS CONFIDENTIAL AND NOT TO BE RELEASED WITHOUT AUTHORIZATION
--- NOTE | 2022-11-14 12:26 | NUR ---
PT ALERT, ORIENTED AND MENTIONED SHE HAS RIDE ARRANGED FOR DC FROM [facility]. PT ALSO SHARED SHE HAS BEEN SOBER FOR A YR AND FEELS SHE HAS FINALLY GROWN UP. HAS FAMILY THAT SHE WANTS TO SET A GOOD EXAMPLE FOR. PT REQUESTED PRAYER, GAVE ENCOURAGEMENT AND BLESSING
--- NOTE | 2022-11-17 15:56 | PATH ---
[facility] [address] [facility] [place], [place] [address] Signed SPECIMEN(S): A ANTRUM/PYLORUS BIOPSY SPECIMEN(S): B STOMACH BODY BIOPSY SPECIMEN SOURCE: A. ANTRUM/PYLORUS BIOPSY B. STOMACH BODY BIOPSY CLINICAL HISTORY: History of GERD. Postop: Tiny hiatal hernia, proximal gastritis. FINAL PATHOLOGIC DIAGNOSIS: A. Antrum / pylorus biopsy: - Diffuse chronic gastritis. - Helicobacter pylori immunostain is positive for organisms. B. Stomach body biopsy: - Diffuse chronic gastritis. - Helicobacter pylori immunostain is positive for organisms. JVR:[facility]:C2NR MICROSCOPIC EXAMINATION: Histologic sections of all submitted blocks are examined by light microscopy. These findings, together with the gross examination, support the pathologic diagnosis. A Helicobacter pylori immunostain is performed with appropriate positive and negative controls on blocks (A1) and (B1) and is positive for organisms. JVR:ruben GROSS DESCRIPTION: A. The specimen, labeled and designated "Speedis, antrum/pylorus biopsy," is received in formalin and consists of one rao soft tissue fragment, 0.3 cm. Entirely submitted in (A1). B. The specimen, labeled and designated "Speedis, stomach body biopsy," is received in formalin and consists of one rao soft tissue fragment, 0.5 cm. Entirely submitted in (B1). VB (under the direct supervision of a pathologist) The Gross Description was prepared using a voice recognition system. The report was reviewed for accuracy; however, sound-alike word errors, addition and/or deletions may occur. If there is any question about this report, please contact Client Services. PERFORMING LABORATORY: PATIENT NAME: JILL FAIR PATHOLOGY DATE OF : 69 REPORT #: [id number] PHYSICIAN: [facility] PATHOLOGY PCP: [facility] REPORT IS CONFIDENTIAL AND NOT TO BE RELEASED WITHOUT AUTHORIZATION [facility] [address] [place], [place] [address] Signed The technical component was performed by [facility], [address] [place] [address] (CLIA# [id number]). Professional interpretation was performed by [facility] - [facility], [address] [place] [id number] (CLIA#: [id number]). Diagnostician: Joseph Núñez MD Pathologist Electronically Signed 11/17/2022 Copies: ~ PATIENT NAME: JILL FAIR PATHOLOGY DATE OF : 69 REPORT #: [id number] PHYSICIAN: [facility] PATHOLOGY PCP: [facility] REPORT IS CONFIDENTIAL AND NOT TO BE RELEASED WITHOUT AUTHORIZATION
== END 2022-11-14 08:36 | disposition home or self-care (01) ==
LOC: OPS 06:05 → DS 06:05 → DSVR 08:29 → OPS 08:36
PROVIDERS: ATTEND Colon & Rectal Surgery
PROC: 0DB68ZX Excision of Stomach, Via Natural or Artificial Opening Endoscopic, Diagnostic (ICD-10-PCS; principal; 2022-11-14 07:30)
DX: K29.50 Unspecified chronic gastritis without bleeding (principal); B96.81 Helicobacter pylori [H. pylori] as the cause of diseases classified elsewhere; K21.9 Gastro-esophageal reflux disease without esophagitis; K44.9 Diaphragmatic hernia without obstruction or gangrene; Z88.8 Allergy status to other drugs, medicaments and biological substances; I10 Essential (primary) hypertension; F19.10 Other psychoactive substance abuse, uncomplicated
CPT/HCPCS: 36415; 87077; J2001; J2704; J7121

== ENCOUNTER 2023-04-27 14:30 | Emergency (ER) | payer OTHER ==
[~2023-04-27] VITALS: Ht 160 cm; Wt 86.6 kg
--- OUTSIDE RECORDS SUMMARY | ~2023-04-27 | XMS | Continuity of Care Document ---
Demographics + + + | Address | [address] | | | [place] [address] | + + + | Preferred Language | Unknown | + + + | Marital Status | Never | + + + | Mandaen Affiliation | Unknown | + + + | Race | or | + + + | Ethnic Group | Not or | + + + Author + + + | Author | [facility] | + + + | Organization | [facility] | + + + | Address | [address] [place] [address] | | | [place] [address] | + + + | Phone | | + + + Care Team Providers + + + + | Care Blood Bank Laboratory Technician Name | Role | Phone | + + + + Unavailable | Unavailable | + + + + Unavailable | Unavailable | + + + + Allergies and Intolerances + + + + + + | date | description | facility | reaction | severity | + + + + + + | (no date) | Lisinopril | [facility] | (no reaction) | (no severity) | | [facility] | | | + + + + + + | (no date) | Abdominal | [facility] | (no reaction) | (no severity) | | | cramps | [facility] | | | + + + + + + | (no date) | Mild | [facility] | (no reaction) | (no severity) | | [facility] | | | + + + + + + | (no date) | Codeine | [facility] | (no reaction) | (no severity) | | | [facility] | | | + + + + + + | (no date) | Syncope | [facility] | (no reaction) | (no severity) | | | [facility] | | | + + + + + + | (no date) | Rash | [facility] | (no reaction) | (no severity) | | | [facility] | | | + + + + + + | (no date) | Copper | [facility] | (no reaction) | (no severity) | | | [facility] | | | + + + + + + | (no date) | Lisinopril | [facility] | (no reaction) | (no severity) | | | [facility] | | | + + + + + + | (no date) | Losartan | [facility] | (no reaction) | (no severity) | | | [facility] | | | + + + + + + | (no date) | Codeine | [facility] | (no reaction) | (no severity) | | [facility] | | | + + + + + + | (no date) | Copper | [facility] | (no reaction) | (no severity) | | | [facility] | | | + + + + + + | (no date) | Lactose | [facility] | (no reaction) | (no severity) | | | [facility] | | | + + + + + + | (no date) | Losartan | [facility] | (no reaction) | (no severity) | | | [facility] | | | + + + + + + | (no date) | Lactose | [facility] | (no reaction) | (no severity) | | | [facility] | | | + + + + + + | (no date) | Copper | [facility] | (no reaction) | (no severity) | | | [facility] | | | + + + + + + | (no date) | Lisinopril | [facility] | (no reaction) | (no severity) | | | [facility] | | | + + + + + + | (no date) | Lactose | [facility] | (no reaction) | (no severity) | | | [facility] | | | + + + + + + | (no date) | Losartan | [facility] | (no reaction) | (no severity) | | [facility] | | | + + + + + + | (no date) | Codeine | [facility] | (no reaction) | (no severity) | | | [facility] | | | + + + + + + Encounters No information. Functional Status No information. Immunizations No information. Medications + + + + | date | description | facility | + + + + | 2015-06-28 00:00 | FAMOTIDINE | [facility] | + + + + | 2015-06-28 00:00 | DIPHENHYDRAMINE HCL | [facility] | + + + + | 2022-11-14 00:00 | DIPHENHYDRAMINE HCL | [facility] | + + + + | 2022-11-14 00:00 | Acetaminophen | [facility] | + + + + | 2022-11-14 00:00 | IBUPROFEN | [facility] | + + + + | 2022-11-14 00:00 | OMEPRAZOLE | [facility] | + + + + | 2018-06-27 00:00 | AZITHROMYCIN | [facility] | + + + + | 2022-11-14 00:00 | | [facility] | | | ASPIRIN/ACETAMINOPHEN/CAFFE | | | | INE | | + + + + | 2019-09-29 00:00 | ONDANSETRON | [facility] | + + + + | 2015-06-28 00:00 | predniSONE | [facility] | + + + + | 2015-06-28 00:00 | EPINEPHRINE | [facility] | + + + + | 2022-11-14 00:00 | IBUPROFEN | [facility] | + + + + | 2014-06-19 00:00 | PENICILLIN V POTASSIUM | [facility] | + + + + | 2022-11-14 00:00 | LORATADINE | [facility] | + + + + | 2022-11-14 00:00 | Diclofenac Epolamine | [facility] | + + + + | 2022-11-14 00:00 | TRAZODONE HCL | [facility] | + + + + | 2014-06-19 00:00 | HYDROCODONE | [facility] | | | BIT/ACETAMINOPHEN | | + + + + Problems + + + + | date | description | facility | + + + + | 2014-06-19 00:00 | Pain due to dental caries | [facility] | + + + + | 2015-06-28 00:00 | Bee sting reaction | [facility] | + + + + | 2017-07-18 00:00 | Contusion of face | [facility] | + + + + | 2018-01-01 00:00 | Intracranial hemorrhage | [facility] | + + + + | 2018-06-27 00:00 | Upper respiratory tract | [facility] | | | infection | | + + + + | 2020-05-30 00:00 | Left knee pain | [facility] | + + + + Procedures + + + + | date | description | facility | + + + + | 2022-11-14 00:00 | Esophagogastroduodenoscopy | [facility] | | | (EGD) with closed biopsy | | + + + + | 2022-11-14 00:00 | Esophagogastroduodenoscopy | [facility] | | | (EGD) with closed biopsy | | + + + + Results/Labs +--------+--------+ +---------+--------+---------+ | test | date | facility | value | unit | notes | +--------+--------+ +---------+--------+---------+ + + | Result panel 1 | + + + + + +-------+ + + | | 2022-11-10 | [facility] | 7.6 | (missing) | (missing) | | (unavailable | [facility] | | | | + + + +-------+ + + + + | Result panel 2 | + + + + + +--------+ + + | | 2022-11-10 | [facility] | 64.4 | (missing) | (missing) | | (unavailable | [facility] | | | | + + + +--------+ + + + + | Result panel 3 | + + + + + +--------+ + + | | 2022-11-10 | [facility] | 27.5 | (missing) | (missing) | | (unavailable | [facility] | | | | + + + +--------+ + + + + | Result panel 4 | + + + + + +-------+ + + | | 2022-11-10 | [facility] | 6.5 | (missing) | (missing) | | (unavailable | [facility] | | | | + + + +-------+ + + + + | Result panel 5 | + + + + + +-------+ + + | | 2022-11-10 | [facility] | 1.3 | (missing) | (missing) | | (unavailable | [facility] | | | | + + + +-------+ + + + + | Result panel 6 | + + + + + +-------+ + + | | 2022-11-10 | [facility] | 0.3 | (missing) | (missing) | | (unavailable | [facility] | | | | + + + +-------+ + + + + | Result panel 7 | + + + + + +------+---------+ + | | 2022-11-10 | [facility] | 95 | mg/dL | (missing) | | (unavailable | [facility] | | | | + + + +------+---------+ + + + | Result panel 8 | + + + + + +-----+---------+ + | | 2022-11-10 | [facility] | 7 | mg/dL | (missing) | | (unavailable | [facility] | | | | + + + +-----+---------+ + + + | Result panel 9 | + + + + + +--------+---------+ + | | 2022-11-10 | [facility] | 0.81 | mg/dL | (missing) | | (unavailable | [facility] | | | | + + + +--------+---------+ + + + | Result panel 10 | + + + + + +------+ + + | | 2022-11-10 | [facility] | 86 | (missing) | (missing) | | (unavailable | [facility] | | | | + + + +------+ + + + + | Result panel 11 | + + + + + +--------+ + + | | 2022-11-10 | [facility] | 8.64 | (missing) | (missing) | | (unavailable | [facility] | | | | + + + +--------+ + + + + | Result panel 12 | + + + + + +--------+ + + | | 2022-11-10 | [facility] | 4.23 | (missing) | (missing) | | (unavailable | [facility] | | | | + + + +--------+ + + + + | Result panel 13 | + + + + + +-------+ + + | | 2022-11-10 | [facility] | 136 | (missing) | (missing) | | (unavailable | [facility] | | | | + + + +-------+ + + + + | Result panel 14 | + + + + + +-------+ + + | | 2022-11-10 | [facility] | 3.6 | (missing) | (missing) | | (unavailable | [facility] | | | | + + + +-------+ + + + + | Result panel 15 | + + + + + +------+ + + | | 2022-11-10 | [facility] | 99 | (missing) | (missing) | | (unavailable | [facility] | | | + + + +------+ + + + + | Result panel 16 | + + + + + +------+ + + | | 2022-11-10 | [facility] | 29 | (missing) | (missing) | | (unavailable | [facility] | | | + + + +------+ + + + + | Result panel 17 | + + + + + +--------+ + + | | 2022-11-10 | [facility] | 11.6 | (missing) | (missing) | | (unavailable | [facility] | | | + + + +--------+ + + + + | Result panel 18 | + + + + + +-------+---------+ + | | 2022-11-10 | [facility] | 9.1 | mg/dL | (missing) | | (unavailable | [facility] | | | | + + + +-------+---------+ + + + | Result panel 19 | + + + + + +-------+ + + | | 2022-11-10 | [facility] | 7.5 | (missing) | (missing) | | (unavailable | [facility] | | | | + + + +-------+ + + + + | Result panel 20 | + + + + + +-------+ + + | | 2022-11-10 | [facility] | 3.7 | (missing) | (missing) | | (unavailable | [facility] | | | | + + + +-------+ + + + + | Result panel 21 | + + + + + +-------+ + + | | 2022-11-10 | [facility] | 3.8 | (missing) | (missing) | | (unavailable | [facility] | | | | + + + +-------+ + + + + | Result panel 22 | + + + + + +--------+ + + | | 2022-11-10 | [facility] | 0.97 | (missing) | (missing) | | (unavailable | [facility] | | | | + + + +--------+ + + + + | Result panel 23 | + + + + + +--------+ + + | | 2022-11-10 | [facility] | 12.8 | (missing) | (missing) | | (unavailable | [facility] | | | | + + + +--------+ + + + + | Result panel 24 | + + + + + +-------+ + + | | 2022-11-10 | [facility] | 0.2 | (missing) | (missing) | | (unavailable | [facility] | | | | + + + +-------+ + + + + | Result panel 25 | + + + + + +------+ + + | | 2022-11-10 | [facility] | 25 | (missing) | (missing) | | (unavailable | [facility] | | | | + + + +------+ + + + + | Result panel 26 | + + + + + +------+ + + | | 2022-11-10 | [facility] | 29 | (missing) | (missing) | | (unavailable | [facility] | | | | + + + +------+ + + + + | Result panel 27 | + + + + + +------+ + + | | 2022-11-10 | [facility] | 86 | (missing) | (missing) | | (unavailable | [facility] | | | | + + + +------+ + + + + | Result panel 28 | + + + + + +--------+ + + | | 2022-11-10 | [facility] | 38.3 | (missing) | (missing) | | (unavailable | [facility] | | | | + + + +--------+ + + + + | Result panel 29 | + + + + + +--------+ + + | | 2022-11-10 | [facility] | 90.6 | (missing) | (missing) | | (unavailable | [facility] | | | | + + + +--------+ + + + + | Result panel 30 | + + + + + +--------+ + + | | 2022-11-10 | [facility] | 30.3 | (missing) | (missing) | | (unavailable | [facility] | | | | + + + +--------+ + + + + | Result panel 31 | + + + + + +--------+ + + | | 2022-11-10 | [facility] | 33.5 | (missing) | (missing) | | (unavailable | [facility] | | | | + + + +--------+ + + + + | Result panel 32 | + + + + + +--------+ + + | | 2022-11-10 | [facility] | 13.9 | (missing) | (missing) | | (unavailable | [facility] | | | | + + + +--------+ + + + + | Result panel 33 | + + + + + +-------+ + + | | 2022-11-10 | [facility] | 280 | (missing) | (missing) | | (unavailable | [facility] | | | | + + + +-------+ + + Social History No information. Vital Signs + + + +---------+ | date | measurement | value | units | + + + +---------+ | 2022-11-10 00:00 | BMI | 33.5 | kg/m2 | + + + +---------+ | 2022-11-10 00:00 | height_metric | 160.02 | cm | + + + +---------+ | 2022-11-10 00:00 | height_standard | 63 | in | + + + +---------+ | 2022-11-10 00:00 | weight_metric | 85.9 | kg | + + + +---------+ | 2022-11-10 00:00 | weight_standard | 189.38 | lb | + + + +---------+ | 2022-11-14 00:00 | BP_diastolic | 88 | mmHg | + + + +---------+ | 2022-11-14 00:00 | BP_systolic | 111 | mmHg | + + + +---------+ | 2022-11-14 00:00 | heart_rate | 58 | /min | + + + +---------+ | 2022-11-14 00:00 | o2_saturation | 98 | % | + + + +---------+ | 2022-11-14 00:00 | respiration_rate | 17 | /min | + + + +---------+ | 2022-11-14 00:00 | temperature_metric | 36.67 | C | | | | | | + + + +---------+ | 2022-11-14 00:00 | | 98 | F | | | temperature_standar | | | | | d | | | + + + +---------+"
--- OUTSIDE RECORDS SUMMARY | ~2023-04-27 | XMS | Continuity of Care Document ---
Demographics + + + | Address | [address] | | | [place] [address] | + + + | Preferred Language | Unknown | + + + | Marital Status | Never | + + + | Worship Affiliation | Unknown | + + + | Race | or | + + + | Ethnic Group | Not or | + + + Author + + + | Author | [facility] | + + + | Organization | [facility] | + + + | Address | [address] [place] [address] | | | [place] [address] | + + + | Phone | | + + + Care Team Providers + + + + | Care Vice Investigator Name | Role | Phone | + [...] + | 2015-06-28 00:00 | FAMOTIDINE | [facility] | + + + + | 2015-06-28 00:00 | DIPHENHYDRAMINE HCL | [facility] | + + + + | 2022-11-14 00:00 | DIPHENHYDRAMINE HCL | [facility] | + + + + | 2022-11-14 00:00 | Acetaminophen | [facility] | + + + + | 2022-11-14 00:00 | IBUPROFEN | [facility] | + + + + | 2022-11-14 00:00 | OMEPRAZOLE | [facility] | + + + + | 2018-06-27 00:00 | AZITHROMYCIN | [facility] | + + + + | 2022-11-14 00:00 | | [facility] | | | ASPIRIN/ACETAMINOPHEN/CAFFE | | | | INE | | + + + + | 2019-09-29 00:00 | ONDANSETRON | [facility] | + + + + | 2015-06-28 00:00 | predniSONE | [facility] | + + + + | 2015-06-28 00:00 | EPINEPHRINE | [facility] | + + + + | 2022-11-14 00:00 | IBUPROFEN | [facility] | + + + + | 2014-06-19 00:00 | PENICILLIN V POTASSIUM | [facility] | + + + + | 2022-11-14 00:00 | LORATADINE | [facility] | + + + + | 2022-11-14 00:00 | Diclofenac Epolamine | [facility] | + + + + | 2022-11-14 00:00 | TRAZODONE HCL | [facility] | + + + + | 2014-06-19 00:00 | HYDROCODONE | [facility] | | | BIT/ACETAMINOPHEN | | + + + + Problems + + + + | date | description | facility | + + + + | 2014-06-19 00:00 | Pain due to dental caries | [facility] | + + + + | 2015-06-28 00:00 | Bee sting reaction | [facility] | + + + + | 2017-07-18 00:00 | Contusion of face | [facility] | + + + + | 2018-01-01 00:00 | Intracranial hemorrhage | [facility] | + + + + | 2018-06-27 00:00 | Upper respiratory tract | [facility] | | | infection | | + + + + | 2020-05-30 00:00 | Left knee pain | [facility] | + + + + Procedures + + + + | date | description | facility | + + + + | 2022-11-14 00:00 | Esophagogastroduodenoscopy | [facility] | | | (EGD) with closed biopsy | | + + + + | 2022-11-14 00:00 | Esophagogastroduodenoscopy | [facility] | | | (EGD) with closed biopsy [...] (missing) | | (unavailable | 16:41:07 | [facility] | | | | | ) | [...]
[~2023-04-27 14:30] MED LIST changes: +CLARITIN10 M2 PO; +DICLOFENAC EPO1 EACH TD; +OMEPRAZOLE20 MG PO; +TRAZODONE HCL150 MG PO
[2023-04-27 15:26] LABS: BASOPHILS 0.1 % (0-2); EOSINOPHILS 1.2 % (0-6); HEMATOCRIT 37.1 % (35.0-50.0); HEMOGLOBIN 12.5 g/dL (12.0-18.0); LYMPHOCYTES 34.8 % (24-44); MCH 30.1 (27-36); MCHC 33.6 g/dl (30-36); MCV 89.7 fl (81-99); MONOCYTES 8.4 % (0-12); NEUTROPHILS 55.5 % (39-80); PLATELET COUNT 261 K/uL (140-440); RBC 4.14 M/ul (4.3-5.7); RDW 12.9 (10.5-15.0)
[2023-04-27 15:35] LABS: INR 1.01 (0.80-1.30); PROTIME 12.9 Sec (11.2-14.2)
[2023-04-27 15:37] LABS: PARTIAL THROMBOPLASTIN TIME 25.3 Sec (22.9-41.3)
[2023-04-27 15:40] LABS: ALBUMIN 3.5 g/dL (3.4-5.0); ALBUMIN/GLOBULIN RATIO 0.92 (1.1-2.4); ANION GAP 10.5 (7-21); BILIRUBIN, TOTAL 0.3 ng/dL (0.2-1.0); BUN/CREATININE RATIO 9.52 (6.0-28.6); CALCIUM 8.6 mg/dL (8.5-10.1); CREATININE, SERUM 0.84 mg/dL (0.55-1.02); POTASSIUM 3.5 mmol/L (3.5-5.1); PROTEIN, TOTAL 7.3 g/dL (6.4-8.2)
[2023-04-27 17:19] VITALS: BP 121/104
--- NOTE | 2023-04-28 05:58 | EKG ---
[facility] [address] [facility] [place], [place] [address] Signed Sinus bradycardia Otherwise normal ECG When compared with ECG of 10-NOV-2022 15:26, No significant change was found Confirmed by DAYA YANES MD ([id number]) on 04/28/2023 5:58:17 AM Electronically Signed By: DAYA YANES 04/28/23 0558 PATIENT NAME: JILL FAIR Electrocardiogram DATE OF : 69 PHYSICIAN: DAYA YANES REPORT #: [id number] REPORT IS CONFIDENTIAL AND NOT TO BE RELEASED WITHOUT AUTHORIZATION
== END 2023-04-27 17:20 | disposition home or self-care (01) ==
LOC: ED 14:30
PROVIDERS: Emergency Medicine
DX: G43.809 Other migraine, not intractable, without status migrainosus (principal); F17.200 Nicotine dependence, unspecified, uncomplicated; Z88.8 Allergy status to other drugs, medicaments and biological substances; Z88.5 Allergy status to narcotic agent; Z91.018 Allergy to other foods; Z79.899 Other long term (current) drug therapy; Z86.73 Personal history of transient ischemic attack (TIA), and cerebral infarction without residual deficits
CPT/HCPCS: 36415; 70450; 70496; 70498; 71045; 80053; 85025; 85610; 85730; 93005; 93010; 99284-25; Q9967

== ENCOUNTER 2024-03-31 10:40 | Emergency (ER) | payer OTHER ==
[~2024-03-31] VITALS: Ht 160 cm; Wt 80.7 kg
[2024-03-31 11:22] LABS: BASOPHILS 0.5 % (0-2); EOSINOPHILS 1.3 % (0-6); HEMATOCRIT 37.5 % (35.0-50.0); HEMOGLOBIN 12.8 g/dL (12.0-18.0); LYMPHOCYTES 33.7 % (24-44); MCH 30.7 (27-36); MCHC 34.2 g/dl (30-36); MONOCYTES 7.3 % (0-12); NEUTROPHILS 57.2 % (39-80); PLATELET COUNT 264 K/uL (140-440); RBC 4.17 M/ul (4.3-5.7); RDW 13.2 (10.5-15.0)
[2024-03-31 11:28] LABS: ALBUMIN 3.5 g/dL (3.4-5.0); ALBUMIN/GLOBULIN RATIO 0.9 (1.1-2.4); ANION GAP 12.6 (7-21); BILIRUBIN, TOTAL 0.3 ng/dL (0.2-1.0); BUN/CREATININE RATIO 12.79 (6.0-28.6); CALCIUM 8.9 mg/dL (8.5-10.1); CREATININE, SERUM 0.86 mg/dL (0.55-1.02); POTASSIUM 3.6 mmol/L (3.5-5.1); PROTEIN, TOTAL 7.4 g/dL (6.4-8.2)
[2024-03-31 12:46] VITALS: BP 121/77
== END 2024-03-31 12:46 | disposition home or self-care (01) ==
LOC: ED 10:40
PROVIDERS: Emergency Medicine
DX: G62.9 Polyneuropathy, unspecified (principal); F17.200 Nicotine dependence, unspecified, uncomplicated; Z86.73 Personal history of transient ischemic attack (TIA), and cerebral infarction without residual deficits; Z79.82 Long term (current) use of aspirin; Z79.899 Other long term (current) drug therapy; Z88.5 Allergy status to narcotic agent; Z91.040 Latex allergy status; Z88.8 Allergy status to other drugs, medicaments and biological substances
CPT/HCPCS: 36415; 70450; 80053; 85025; 99284-25

== ENCOUNTER 2024-07-08 03:48 | Emergency (ER) | payer OTHER ==
[~2024-07-08] VITALS: Ht 160 cm; Wt 83.7 kg
[2024-07-08 04:10] LABS: BASOPHILS 0.6 % (0-2); EOSINOPHILS 2.1 % (0-6); HEMATOCRIT 37.9 % (35.0-50.0); HEMOGLOBIN 12.8 g/dL (12.0-18.0); LYMPHOCYTES 34.5 % (24-44); MCH 31.2 (27-36); MCHC 33.7 g/dl (30-36); MCV 92.3 fl (81-99); MONOCYTES 8.4 % (0-12); NEUTROPHILS 54.4 % (39-80); PLATELET COUNT 276 K/uL (140-440); RBC 4.11 M/ul (4.3-5.7); RDW 13.5 (10.5-15.0)
[2024-07-08 04:22] LABS: ALBUMIN 3.6 g/dL (3.4-5.0); ALBUMIN/GLOBULIN RATIO 1.03 (1.1-2.4); ANION GAP 13.1 (7-21); BILIRUBIN, TOTAL 0.3 ng/dL (0.2-1.0); CALCIUM 8.9 mg/dL (8.5-10.1); POTASSIUM 4.1 mmol/L (3.5-5.1); PROTEIN, TOTAL 7.1 g/dL (6.4-8.2)
[2024-07-08] MEDS ORDERED: HYDROmorphone HCL 1 MG/ML SYR IV PRN (05:00)
[2024-07-08] MEDS ORDERED: ondansetron HCL 4 MG/2 ML VIAL IV ONE (05:00)
[2024-07-08 06:11] LABS: CLARITY, CEREBROSPINAL FLUID TRANSPARENT; COLOR, CEREBROSPINAL FLUID CLEAR
[2024-07-08 06:12] LABS: GLUCOSE, CSF 66 mg/dL (40-70); PROTEIN, CSF 27 mg/dL (15-45); RBC, CEREBROSPINAL FLUID 0; WBC, CEREBROSPINAL FLUID 0
[2024-07-08] MEDS ORDERED: HYDROCODONE BIT/ACETAMINOPHEN 5/325 MG 1 TAB HOME.PACK PO PRN (06:30)
[2024-07-08] MEDS ORDERED: SODIUM CHLORIDE 0.9% 1,000 ML IV SCH (06:45)
[2024-07-08 07:15] VITALS: BP 96/68
--- NOTE | 2024-07-09 22:09 | EKG ---
[facility] [address] [facility] [place] [address] Signed Sinus bradycardia When compared with ECG of 27-APR-2023 15:17, No significant change was found Artifact in v5 Confirmed by Fabian Ferguson MD () on 07/09/2024 10:09:31 PM Electronically Signed By: FABIAN FERGUSON MD 07/09/24 220 PATIENT NAME: JILL FAIR Electrocardiogram DATE OF : 69 PHYSICIAN: FABIAN FERGUSON MD REPORT #: [id number] REPORT IS CONFIDENTIAL AND NOT TO BE RELEASED WITHOUT AUTHORIZATION
== END 2024-07-08 07:34 | disposition home or self-care (01) ==
LOC: ED 03:48
PROVIDERS: Emergency Medicine
DX: R51.9 Headache, unspecified (principal); R55 Syncope and collapse; F17.200 Nicotine dependence, unspecified, uncomplicated; Z88.5 Allergy status to narcotic agent; Z88.8 Allergy status to other drugs, medicaments and biological substances; Z91.011 Allergy to milk products
CPT/HCPCS: 36415; 62270; 70450; 71045; 73660; 80053; 82945; 84157; 84484; 85025; 89051; 93005; 93010; 99285-25; A9270; J1171; J2405; J7030

== ENCOUNTER 2024-12-21 20:24 | Emergency (ER) | payer OTHER ==
[~2024-12-21] VITALS: Ht 160 cm; Wt 76.0 kg
[2024-12-21] MEDS ORDERED: FLONASE ALLERG9.9 ML (20:53)
[2024-12-21 21:09] LABS: BASOPHILS 0.1 % (0-2); EOSINOPHILS 0.4 % (0-6); HEMATOCRIT 44.1 % (35.0-50.0); HEMOGLOBIN 15.3 g/dL (12.0-18.0); LYMPHOCYTES 4.1 % (24-44); MCH 30.9 (27-36); MCHC 34.6 g/dl (30-36); MCV 89.4 fl (81-99); MONOCYTES 3.7 % (0-12); NEUTROPHILS 91.7 % (39-80); PLATELET COUNT 313 K/uL (140-440); RBC 4.93 M/ul (4.3-5.7); RDW 13.8 (10.5-15.0)
[2024-12-21] MEDS ORDERED: ondansetron HCL 4 MG/2 ML VIAL IV ONE (21:15)
[2024-12-21] MEDS ORDERED: SODIUM CHLORIDE 0.9% 1,000 ML IV ONE (21:15)
[2024-12-21 21:23] LABS: ALBUMIN 4.4 g/dL (3.4-5.0); ALBUMIN/GLOBULIN RATIO 0.98 (1.1-2.4); ANION GAP 14.9 (7-21); BILIRUBIN, TOTAL 0.4 mg/dL (0.2-1.0); BUN/CREATININE RATIO 15.23 (6.0-28.6); CALCIUM 9.2 mg/dL (8.5-10.1); CREATININE, SERUM 1.05 mg/dL (0.55-1.02); MAGNESIUM 2.1 mg/dL (1.8-2.4); POTASSIUM 3.9 mmol/L (3.5-5.1); PROTEIN, TOTAL 8.9 g/dL (6.4-8.2)
[2024-12-21] MEDS ORDERED: KETOROLAC TROMETHAMINE 30 MG/ML VIAL IV ONE (21:45)
[2024-12-21 21:46] LABS: CORONAVIRUS COVID-19 AG NEGATIVE (NEGATIVE)
[2024-12-21 22:53] LABS: BILIRUBIN, URINE NEGATIVE (negative); BLOOD/HGB, URINE TRACE-I (Negative); KETONE, URINE TRACE (Negative); LEUK ESTERASE, URINE NEGATIVE (negative); NITRITE, URINE NEGATIVE (negative)
[2024-12-21 23:01] LABS: EPITHELIAL CELLS, URINE SQUAMOUS 4+ /lpf (0-1+)
[2024-12-21 23:02] LABS: BACTERIA, URINE RARE /hpf (negative); CASTS, URINE NONE SEEN \\lpf; COLLECTION TYPE, URINE CLEAN CATCH; CRYSTALS, URINE NONE SEEN (0-1+); REFLEX CULTURE, URINE No (No)
[2024-12-21] MEDS ORDERED: ONDANSETRON ODT8 MG PO (23:13)
[2024-12-21] MEDS ORDERED: LOMOTIL TABLET1 EACH PO (23:13)
[2024-12-21 23:15] VITALS: BP 107/66
[2024-12-21] MEDS ORDERED: ONDANSETRON 4 MG HOME.PACK SL ONE (23:15)
== END 2024-12-21 23:26 | disposition home or self-care (01) ==
LOC: ED 20:24
PROVIDERS: Family Medicine
DX: A08.4 Viral intestinal infection, unspecified (principal); F17.200 Nicotine dependence, unspecified, uncomplicated; Z88.0 Allergy status to penicillin; Z88.5 Allergy status to narcotic agent; Z88.1 Allergy status to other antibiotic agents; Z88.8 Allergy status to other drugs, medicaments and biological substances; Z88.9 Allergy status to unspecified drugs, medicaments and biological substances
CPT/HCPCS: 36415; 80053; 81001; 83690; 83735; 85025; 96361; 96374; 96375; 99284-25; A9270; J1885; J2405; J7030; U0002

== ENCOUNTER 2025-06-17 11:54 | Emergency (ER) | payer OTHER ==
[~2025-06-17] VITALS: Ht 160 cm; Wt 76.3 kg
--- NOTE | ~2025-06-17 | EKG ---
[facility] [address] [facility] [place], [place] [address] Draft EK completed, results pending confirmation PATIENT NAME: MANJULAJILL Electrocardiogram DATE OF : 69 PHYSICIAN: PRELIMINARY REPORT #: [id number] REPORT IS CONFIDENTIAL AND NOT TO BE RELEASED WITHOUT AUTHORIZATION
[~2025-06-17 11:54] MED LIST changes: +FLONASE ALLERG9.9 ML; +LOMOTIL TABLET1 EACH PO
[2025-06-17 12:13] LABS: BASOPHILS 0.2 % (0.1-1.2); EOSINOPHILS 0.7 % (0.7-5.8); LYMPHOCYTES 31.6 % (19.3-51.7); MCH 31.1 PG (25.6-32.2); MCHC 34.5 g/dL (32.2-35.5); MCV 90.2 fL (79.4-94.8); MONOCYTES 8.1 % (4.7-12.5); NEUTROPHILS 59.0 % (34.0-71.1); RBC 3.86 M/uL (3.93-5.22)
[2025-06-17] MEDS ORDERED: KETOROLAC TROMETHAMINE 15 MG/ML VIAL IV ONE (12:15)
[2025-06-17 12:36] LABS: ALT (SGPT) 13.0 U/L (14-59); AST (SGOT) 19.0 U/L (15-37); GLOMERULAR FILTRATION RATE,EST 85.0 mL/min (>60); PROTEIN, TOTAL 7.2 g/dL (6.4-8.2); UREA NITROGEN 9.0 mg/dL (7-18)
[2025-06-17 13:32] VITALS: BP 115/68
--- NOTE | 2025-06-18 12:19 | EKG ---
[facility] [address] [facility] [place], [place] [address] Signed Sinus bradycardia Otherwise normal ECG When compared with ECG of 17-JUN-2025 11:58, (Unconfirmed) No significant change was found Confirmed by OLY BERNSTEIN MD ([id number]) on 06/18/2025 12:18:54 PM Electronically Signed By: OYL BERNSTEIN 06/18/25 1219 PATIENT NAME: JILL FAIR Electrocardiogram DATE OF : 69 PHYSICIAN: OLY BERNSTEIN REPORT #: [id number] REPORT IS CONFIDENTIAL AND NOT TO BE RELEASED WITHOUT AUTHORIZATION
== END 2025-06-17 13:33 | disposition home or self-care (01) ==
LOC: ED 11:54
PROVIDERS: Emergency Medicine
DX: R07.89 Other chest pain (principal); F17.200 Nicotine dependence, unspecified, uncomplicated; Z88.8 Allergy status to other drugs, medicaments and biological substances; Z91.0110 Allergy to milk products, unspecified; Z88.5 Allergy status to narcotic agent; Z91.048 Other nonmedicinal substance allergy status; Z79.82 Long term (current) use of aspirin; Z79.899 Other long term (current) drug therapy
CPT/HCPCS: 36415; 71045; 80053; 83880; 84484; 85025; 93005; 93010; 96374; 99285-25; J1885